=== PATIENT | male | born 1970 | race African-American/Black ===

== ENCOUNTER 2020-11-15 09:09 | Emergency (ER) | payer MEDICAID ==
[~2020-11-15] VITALS: Ht 175.3 cm; Wt 70.0 kg
[2020-11-15] MEDS ORDERED: IBUPROFEN 400MG TABLET PO ONE (09:45)
[2020-11-15] MEDS ORDERED: IBUP-2028 MT (11:37)
[2020-11-15 12:27] VITALS: BP 183/97
== END 2020-11-15 12:28 | disposition home or self-care (01) ==
LOC: ER 09:09
DX: S02.85XA Fracture of orbit, unspecified, initial encounter for closed fracture (principal); S06.9X0A Unspecified intracranial injury without loss of consciousness, initial encounter; W18.30XA Fall on same level, unspecified, initial encounter; Y93.89 Activity, other specified; Y92.89 Other specified places as the place of occurrence of the external cause; Y99.8 Other external cause status
CPT/HCPCS: 70486; 99284